=== PATIENT | male | born 1980 | race Caucasian/White ===

== ENCOUNTER → 2024-02-15 07:37 | Outpatient (REF) | payer OTHER, SELFPAY | LOC: RAD 07:37 | PROVIDERS: ATTENDING PHYSICIAN Family Medicine | DX: M79.605 Pain in left leg (principal); R60.0 Localized edema; R10.84 Generalized abdominal pain; E78.01 Familial hypercholesterolemia | CPT/HCPCS: 75571; 76700; 93971 ==

== ENCOUNTER → 2025-07-30 09:00 | Outpatient (REF) | payer OTHER, SELFPAY | LOC: RAD 09:00 | PROVIDERS: ATTENDING PHYSICIAN Family Medicine | DX: R10.32 Left lower quadrant pain (principal) | CPT/HCPCS: 74177; Q9967 ==

== ENCOUNTER 2025-09-17 06:21 | Day surgery (SDC) | payer OTHER, SELFPAY | END 2025-09-17 10:20 | disposition home or self-care (01) | LOC: GI 06:21 | PROVIDERS: ATTENDING PHYSICIAN Internal Medicine Gastroenterology | DX: Z12.11 Encounter for screening for malignant neoplasm of colon (principal); K64.8 Other hemorrhoids; Z80.0 Family history of malignant neoplasm of digestive organs; D12.2 Benign neoplasm of ascending colon; K63.5 Polyp of colon; D12.5 Benign neoplasm of sigmoid colon; D12.4 Benign neoplasm of descending colon | CPT/HCPCS: 45385; 45380; 88305 ==